=== PATIENT | male | born 1935 | race Caucasian/White ===

== ENCOUNTER → 2016-08-10 | Outpatient (CLI) | payer BC | END | disposition home or self-care (01) | LOC: CFH 13:09 | PROVIDERS: ATTEND Internal Medicine Cardiovascular Disease | DX: I34.0 Nonrheumatic mitral (valve) insufficiency (principal); I51.7 Cardiomegaly; I10 Essential (primary) hypertension; Z95.3 Presence of xenogenic heart valve | CPT/HCPCS: 93306 ==

== ENCOUNTER → 2018-01-10 | Outpatient (CLI) | payer BC, MEDICARE | END | disposition home or self-care (01) | LOC: CFH 13:11 | PROVIDERS: ATTEND Internal Medicine Cardiovascular Disease | DX: I08.1 Rheumatic disorders of both mitral and tricuspid valves (principal); I10 Essential (primary) hypertension; I06.2 Rheumatic aortic stenosis with insufficiency | CPT/HCPCS: 93306 ==

== ENCOUNTER → 2018-01-30 | Outpatient (CLI) | payer BC | END | disposition home or self-care (01) | LOC: CFH 10:39 | PROVIDERS: ATTEND Nurse Practitioner | DX: Z13.820 Encounter for screening for osteoporosis (principal); M85.88 Other specified disorders of bone density and structure, other site | CPT/HCPCS: 77080 ==

== ENCOUNTER → 2019-03-26 | Outpatient (CLI) | payer BC ==
[~2019-03-26] MED LIST: REGADENOSON 0.4 MG/5 ML SYRINGE ONE
== END | disposition home or self-care (01) ==
LOC: CFH 12:45
PROVIDERS: ATTEND Internal Medicine Cardiovascular Disease
DX: I08.8 Other rheumatic multiple valve diseases (principal); I11.9 Hypertensive heart disease without heart failure; I25.89 Other forms of chronic ischemic heart disease; Z95.2 Presence of prosthetic heart valve; Z95.1 Presence of aortocoronary bypass graft
CPT/HCPCS: 78452; 93017; 93306; A9502; J2785

== ENCOUNTER 2019-04-08 12:12 | Day surgery (SDC) | payer BC ==
[~2019-04-08] VITALS: Ht 160 cm; Wt 84.1 kg
[2019-04-08 12:54] VITALS: BP 119/66
[2019-04-08] MEDS ORDERED: LEVO88CA2 PO (13:10)
[2019-04-08] MEDS ORDERED: METO25TA35 PO (13:10)
[2019-04-08] MEDS ORDERED: ROSU20TA2 PO (13:10)
[2019-04-08] MEDS ORDERED: BUPR1FIL23 SL (13:10)
[2019-04-08] MEDS ORDERED: ASPI81TA45 PO (13:10)
[2019-04-08] MEDS ORDERED: ALEN70TA6 PO (13:10)
[2019-04-08] MEDS ORDERED: MAGN400T36 PO (13:14)
[2019-04-08] MEDS ORDERED: VITA100C8 PO (13:14)
[2019-04-08] MEDS ORDERED: OMEG1CAP24 PO (13:14)
[2019-04-08] MEDS ORDERED: ASCO100019 PO (13:14)
[2019-04-08 13:28] LABS: BASOPHILS # (AUTO) 0.02 x10^3/uL (0-0.1); BASOPHILS % (AUTO) 0 % (0-1); EOSINOPHILS # (AUTO) 0.26 x10^3/uL (0-0.4); EOSINOPHILS % (AUTO) 4 % (1-7); LYMPHOCYTES # (AUTO) 1.35 x10^3/uL (1-3.4); LYMPHOCYTES % (AUTO) 23 % (22-44); MD NO; MEAN CORPUSCULAR HEMOGLOBIN 31.4 pg (27.5-34.5); MEAN CORPUSCULAR HGB CONC 33.6 g/dL (33.2-36.2); MEAN CORPUSCULAR VOLUME 93.4 fL (81-97); MEAN PLATELET VOLUME 7.6 fL (7.4-10.4); MONOCYTES # (AUTO) 0.56 x10^3/uL (0.2-0.8); MONOCYTES % (AUTO) 9 % (2-9); NEUTROPHILS % (AUTO) 63 % (42-75); PLATELET COUNT 294 x10^3/uL (130-400); RED BLOOD COUNT 4.48 x10^6/uL (4.38-5.82); RED CELL DISTRIBUTION WIDTH 14.1 % (9.4-14.8)
[2019-04-08 13:36] LABS: ANION GAP 5 mmol/L (5-15); CALCIUM 9.1 mg/dL (8.5-10.1); CHLORIDE 108 mmol/L (98-107)
[2019-04-08 13:37] LABS: CREATININE 0.73 mg/dL (0.7-1.3)
[2019-04-08] MEDS ORDERED: FENTANYL PF 100 MCG/2ML ONE (14:33)
[2019-04-08] MEDS ORDERED: MIDAZOLAM 1 MG/ML, 5ML ONE (14:33)
[2019-04-08] MEDS ORDERED: BIVALIRUDIN 250 MG ONE (14:34)
[2019-04-08] MEDS ORDERED: LIDOCAINE 2%, 20ML ONE (14:34)
== END 2019-04-08 18:19 | disposition home or self-care (01) ==
LOC: CACL 12:12 → 5SO 16:24 → CACL 18:19
PROVIDERS: ATTEND Internal Medicine Cardiovascular Disease
DX: R94.39 Abnormal result of other cardiovascular function study (principal); I25.10 Atherosclerotic heart disease of native coronary artery without angina pectoris; I25.82 Chronic total occlusion of coronary artery; I10 Essential (primary) hypertension; E78.2 Mixed hyperlipidemia; G47.30 Sleep apnea, unspecified; Z95.2 Presence of prosthetic heart valve; Z99.81 Dependence on supplemental oxygen; Z79.82 Long term (current) use of aspirin; Z79.899 Other long term (current) drug therapy
CPT/HCPCS: 36415; 80048; 85025; 93459; 99156; C1760; C1769; C1894; J2250; J3010; Q9967; 93458; G0378; J0583